=== PATIENT | female | born 1955 | race Caucasian/White ===

== ENCOUNTER 2017-02-21 09:24 | Emergency (ER) | payer BC ==
[2017-02-21] MEDS ORDERED: Fluorescein Opthalmic Strip ONE (10:54)
[2017-02-21] MEDS ORDERED: Proparacaine 0.5% Opth 15 ML BOT ONE (10:54)
== END 2017-02-21 11:24 | disposition home or self-care (01) ==
LOC: ERS 09:24
DX: S05.02XA Injury of conjunctiva and corneal abrasion without foreign body, left eye, initial encounter (principal); E03.9 Hypothyroidism, unspecified; E78.5 Hyperlipidemia, unspecified; F41.9 Anxiety disorder, unspecified; F32.9 Major depressive disorder, single episode, unspecified; W22.8XXA Striking against or struck by other objects, initial encounter
CPT/HCPCS: 99283

== ENCOUNTER 2019-04-30 11:15 | Inpatient (IN) | payer BC ==
[~2019-04-30 11:15] MED LIST: Iopamidol 370 76% 100 ML VIAL ONE
[2019-04-30 12:16] LABS: #Basophils 0.1 thou/uL (0.0-0.2); #Eosinphils 0.2 thou/uL (0.0-0.7); #Lymphocytes 2.4 thou/uL (1.20-3.40); #Monocytes 0.7 thou/uL (0.11-0.59); #Neutrophils 4.7 thou/uL (1.40-6.50); %Basophils 0.7 % (0.0-1.0); %Eosinophils 2.8 % (0.0-10.0); %Lymphocytes 29.6 % (21.0-51.0); %Monocytes 8.1 % (0.0-10.0); %Neutrophils 58.9 % (42.0-75.0); Hemoglobin 15.1 g/dL (12.0-16.0); Mean Corpuscular HGB CONC 34.1 g/dL (32.0-36.0); Mean Platelet Volume 7.1 fL (7.4-10.4); Platelet Count 269 thou/uL (130-400); RBC Distribution Width 11.6 % (11.5-14.5); Red Blood Cell (RBC) Count 5.04 mill/uL (4.20-5.40)
[2019-04-30 12:21] LABS: PTT 38.4 SEC (22.9-36.1); Prothrombin Time 12.8 SEC (12.0-14.7)
[2019-04-30 12:35] LABS: ALT (SGPT) 20 U/L (8-55); AST (SGOT) 18 U/L (5-34); Albumin 4.9 g/dL (3.4-4.8); Alkaline Phosphatase 70 U/L (40-110); Anion Gap 14 mmol/L (10-20); BUN (Urea Nitrogen) 16 mg/dL (9.8-20.1); Bilirubin, Total 0.6 mg/dL (0.2-1.2); Calc. Creatinine Clearance 0 mL/min (70-130); Calcium 10.4 mg/dL (7.8-10.44); Carbon Dioxide 28 mmol/L (23-31); Chloride 102 mmol/L (98-107); Cholesterol 260 mg/dl (< 200 Desired); Estimated GFR-MDRD 46; Globulin 3.3 g/dL (2.4-3.5); Glucose 107 mg/dL (80-115); HDL Cholesterol 37 mg/dL (>60 Neg Risk); Potassium 4.6 mmol/L (3.5-5.1); Protein, Total 8.2 g/dL (6.0-8.3); Sodium 139 mmol/L (136-145); Triglycerides 549 mg/dL (Less than 150)
[2019-04-30] MEDS ORDERED: Heparin (Artline) 1,000 ML ONE (12:40)
[2019-04-30] MEDS ORDERED: Verapamil 5 MG/2 ML VIAL ONE (12:56)
[2019-04-30] MEDS ORDERED: Heparin 10,000 UNITS/1 ML VIAL ONE (12:56)
[2019-04-30] MEDS ORDERED: Nitroglycerin 100MG/250ML BOT 250 ML ONE (12:57)
[2019-04-30] MEDS ORDERED: Fentanyl 100 MCG/2 ML VIAL ONE (13:10)
[2019-04-30] MEDS ORDERED: Midazolam HCl 2 mg/2 ml Vial ONE (13:10)
[2019-04-30] MEDS ORDERED: Clopidogrel Bisulfate 300 MG TAB ONE (13:36)
[2019-04-30] MEDS ORDERED: Aspirin Chewable 81 MG TAB ONE (13:36)
[2019-04-30] MEDS ORDERED: Acetaminophen/Codeine 30-300mg Tablet PO PRN ×2 (13:41)
[2019-04-30] MEDS ORDERED: Nitroglycerin 0.4 MG TAB (25 Tab Bottle) SL PRN (13:41)
[2019-04-30] MEDS ORDERED: Sodium Chloride 0.9% 200 ML IV PRN (13:41)
[2019-04-30] MEDS ORDERED: Sodium Chloride 0.9% 1,000 ML IV SCH (13:45)
[2019-04-30] MEDS ORDERED: Communication Order-Pharmacy FS SCH (14:16)
--- NOTE | 2019-04-30 14:37 | RAD ---
Chest AP view INDICATION: Chest pain COMPARISON: None FINDINGS: Lungs:The lungs are clear Cardiac silhouette:The cardiomediastinal silhouette appears within normal limits. Pulmonary vasculature:Normal Pleural spaces:No pleural effusion or pneumothorax is demonstrated. Upper abdomen:No abnormality seen. Osseous structures: No acute osseous abnormality. Additional findings:None. IMPRESSION: No acute cardiopulmonary abnormality.
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
[2019-04-30 23:00] VITALS: BMI 35.5
[2019-05-01] MEDS ORDERED: CEFAZOLIN 2 GM in Premix Bag 1 BAG IVPB SCH (03:45)
[2019-05-01] MEDS ORDERED: Norepinephrine 4 MG/4 ML VIAL ONE ×2 (06:27→09:52)
[2019-05-01] MEDS ORDERED: Nitroglycerin 50 MG/250 ML BOT 0 ML ONE (06:27)
[2019-05-01] MEDS ORDERED: Fentanyl 250 MCG/5 ML VIAL ONE ×2 (06:28→10:12)
[2019-05-01] MEDS ORDERED: Albumin 5% 500 ML ONE (07:56)
[2019-05-01] MEDS ORDERED: Sodium Bicarb 50 MEQ/50 ML Abboject 8.4% SYRINGE ONE (09:52)
[2019-05-01] MEDS ORDERED: Aminocaproic Acid 5 GM/20 ML VIAL ONE (09:52)
[2019-05-01] MEDS ORDERED: Lidocaine 1% PF 5 ML VIAL ONE (09:52)
[2019-05-01] MEDS ORDERED: Thrombin 5000 UNITS/5 ML VIAL ONE (09:52)
[2019-05-01] MEDS ORDERED: Protamine Sulfate 250 MG/25 ML VIAL ONE (09:52)
[2019-05-01] MEDS ORDERED: Glycopyrrolate 0.2 MG/ML 5 ML SYRINGE ONE (09:52)
[2019-05-01] MEDS ORDERED: Vecuronium 10 MG VIAL ONE ×2 (09:52→10:13)
[2019-05-01] MEDS ORDERED: Potassium Chloride 60 MEQ/30 ML VIAL ONE (09:52)
[2019-05-01] MEDS ORDERED: Magnesium Sulfate 1 GM/2 ML VIAL ONE (09:52)
[2019-05-01] MEDS ORDERED: Calcium Chloride 1 GM/10 ML Abboject SYRINGE ONE (09:52)
[2019-05-01] MEDS ORDERED: Heparin 5,000 UNITS/ML VIAL ONE (09:52)
[2019-05-01] MEDS ORDERED: Ondansetron PF 4 MG/2 ML Vial ONE (09:52)
[2019-05-01] MEDS ORDERED: Heparin 30,000 units/30 ml VIAL ONE (09:52)
[2019-05-01] MEDS ORDERED: Nitroglycerin 50 MG/250 ML BOT ONE (09:52)
[2019-05-01] MEDS ORDERED: PROPOFOL 200 MG/20 ML VIAL ONE (09:52)
[2019-05-01] MEDS ORDERED: Papaverine 60 MG/2 ML VIAL ONE (09:52)
[2019-05-01] MEDS ORDERED: Cardioplegic Soln 1,000 ML BAG ONE (09:52)
[2019-05-01] MEDS ORDERED: Midazolam HCl 5 mg/5 ml Vial ONE (10:13)
[2019-05-01] MEDS ORDERED: Dexmedetomidine 200 MCG/2 ML VIAL ONE (10:13)
[2019-05-01] MEDS ORDERED: Ondansetron ODT 4 MG TAB ONE (10:39)
[2019-05-01] MEDS ORDERED: Midazolam HCl 2 mg/2 ml Vial ONE (10:39)
[2019-05-01] MEDS ORDERED: Heparin 10,000 UNITS/1 ML VIAL 30,000 UNITS in Sodium Chloride 0.9% 1,000 ML FS SCH (11:00)
[2019-05-01] MEDS ORDERED: Insulin Regular 300 UNITS/3 ML VIAL ONE (13:22)
[2019-05-01] MEDS ORDERED: Mag-Al 1200 mg/1200 mg/30 ML UDCUP PO PRN (14:54)
[2019-05-01] MEDS ORDERED: DOPamine 400 MG/D5W 250 ML 250 ML IVPB PRN (14:54)
[2019-05-01] MEDS ORDERED: Bisacodyl 5 MG TAB PO PRN (14:54)
[2019-05-01] MEDS ORDERED: Morphine 2 MG/ML SYRINGE SLOW IVP PRN (14:54)
[2019-05-01] MEDS ORDERED: Norepinephrine 8 MG/0.9% NS 250 ML IVPB PRN (14:54)
[2019-05-01] MEDS ORDERED: Guaifenesin DM 100-10/5 ML UDCUP PO PRN (14:54)
[2019-05-01] MEDS ORDERED: Nitroglycerin 50 MG/250 ML BOT 250 ML IVPB PRN (14:54)
[2019-05-01] MEDS ORDERED: Hetastarch 6% 500 ML 500 ML IVPB PRN (14:54)
[2019-05-01] MEDS ORDERED: Promethazine HCl 25 MG/ML VIAL IM PRN (14:54)
[2019-05-01] MEDS ORDERED: Post-Op Insulin Drip Protocol IVPB ONE (14:54)
[2019-05-01] MEDS ORDERED: niCARdipine 25 MG in Sodium Chloride 0.9% 250 ML 240 ML IVPB PRN (14:54)
[2019-05-01] MEDS ORDERED: hydrALAZINE 20 MG/ML VIAL SLOW IVP PRN (14:54)
[2019-05-01] MEDS ORDERED: Bisacodyl 10 MG SUPP PR PRN (14:54)
[2019-05-01] MEDS ORDERED: Ondansetron PF 4 MG/2 ML Vial IVP PRN (14:54)
[2019-05-01] MEDS ORDERED: Insulin Regular 300 UNITS/3 ML VIAL SC PRN (15:14)
[2019-05-01] MEDS ORDERED: HUMULIN R 100 UNITS in Sodium Chloride 0.9% 100 ML IVPB SCH (15:14)
[2019-05-01] MEDS ORDERED: Dextrose 5% in Water 1,000 ML IV PRN (15:14)
[2019-05-01] MEDS ORDERED: Dextrose 50% Abboject 50 ML SYRINGE SLOW IVP PRN (15:14)
[2019-05-01] MEDS ORDERED: Magnesium 2 GM/50 ML 2 GM in Premix Bag 1 BAG IVPB SCH (15:15)
[2019-05-01 15:35] LABS: INR-International Normal Ratio 1.3; Prothrombin Time 16.6 SEC (12.0-14.7)
[2019-05-01 15:36] LABS: Hemoglobin 11.9 g/dL (12.0-16.0); Mean Corpuscular Hemoglobin 30.4 pg (27.0-31.0); Mean Corpuscular Volume 89.5 fL (78.0-98.0); Mean Platelet Volume 7.2 fL (7.4-10.4); PTT 34.6 SEC (22.9-36.1); Platelet Count 202 thou/uL (130-400); RBC Distribution Width 11.5 % (11.5-14.5); Red Blood Cell (RBC) Count 3.91 mill/uL (4.20-5.40); White Blood Cell (WBC) Count 22.4 thou/uL (4.8-10.8)
[2019-05-01] MEDS: Lactated Ringer's 1,000 ML IV SCH (15:41)
[2019-05-01 15:50] LABS: Anion Gap 7 mmol/L (10-20); BUN (Urea Nitrogen) 13 mg/dL (9.8-20.1); Calc. Creatinine Clearance 91 mL/min (70-130); Carbon Dioxide 22 mmol/L (23-31); Chloride 113 mmol/L (98-107); Estimated GFR-MDRD 72; Glucose 176 mg/dL (80-115); Potassium 4.1 mmol/L (3.5-5.1); Sodium 138 mmol/L (136-145)
[2019-05-01 15:54] LABS: Band 33 % (5-11); Eosinophils 1 % (0-10); Lymphocytes 6 % (21-51); MDiff Complete? YES; Monocytes 9 % (0-10); Neutrophil 46 % (42-75); Platelet Morphology Comment Appears Adequate; Polychromasia SLIGHT = 2-3 cells (100X) (0-2/hpf); Reactive Lymphocytes 5 % (0-10)
--- NOTE | 2019-05-01 16:02 | RAD ---
SINGLE VIEW OF THE CHEST: 05/01/19 COMPARISON: 04/30/18 HISTORY: Status post open heart surgery. FINDINGS: Single view of the chest shows an enlarged but stable cardiomediastinal silhouette. The patient is st atus post sternotomy. There is a right subclavian central venous catheter with tip in the superior ve na cava. No pneumothorax is seen. There is no evidence of consolidation, mass or pleural effusion. IMPRESSION: Appropriate position of lines and tubes status post sternotomy. POS: OFF
[2019-05-01] MEDS: Fentanyl 100 MCG/2 ML VIAL SLOW IVP PRN ×5 (16:28→23:47)
[2019-05-01] MEDS: Ketorolac Tromethamine 30 MG/ML VIAL IVP SCH ×2 (17:24→23:29)
[2019-05-01] MEDS: CEFAZOLIN 2 GM in Premix Bag 1 BAG IVPB SCH (18:29)
[2019-05-01] MEDS: traMADol HCl 50 MG TAB PO PRN ×2 (19:29→23:48)
[2019-05-01] MEDS: Simvastatin 20 MG TAB PO SCH (20:43)
[2019-05-01] MEDS: Famotidine/PF 20 mg/2ml Vial SLOW IVP SCH (20:43)
[2019-05-01] MEDS: Acetaminophen 325 MG TAB PO PRN (20:43)
[2019-05-01 20:51] LABS: Hemoglobin 11.6 g/dL (12.0-16.0)
[2019-05-01 20:58] LABS: Potassium 3.9 mmol/L (3.5-5.1)
[2019-05-01] MEDS ORDERED: FLU VACC QS2019-20(6MOS UP)/PF 60 MCG/0.5 ML SYRINGE IM ONE (21:00)
[2019-05-01] MEDS: Potassium Chloride 20 MEQ/100 ML PREMIX BAG IVPB PRN (21:02)
[2019-05-02] MEDS: Lactated Ringer's 1,000 ML IV SCH ×2 (02:36→16:38)
[2019-05-02] MEDS: CEFAZOLIN 2 GM in Premix Bag 1 BAG IVPB SCH ×2 (02:37→11:05)
[2019-05-02] MEDS: Acetaminophen 325 MG TAB PO PRN (04:12)
[2019-05-02] MEDS: traMADol HCl 50 MG TAB PO PRN ×3 (04:13→18:25)
[2019-05-02 05:36] LABS: #Lymphocytes 0.7 thou/uL (1.20-3.40); #Monocytes 1.5 thou/uL (0.11-0.59); #Neutrophils 18.4 thou/uL (1.40-6.50); %Eosinophils 0.1 % (0.0-10.0); %Lymphocytes 3.4 % (21.0-51.0); %Monocytes 7.3 % (0.0-10.0); %Neutrophils 89.2 % (42.0-75.0); Hemoglobin 10.3 g/dL (12.0-16.0); Mean Corpuscular HGB CONC 33.9 g/dL (32.0-36.0); Mean Corpuscular Hemoglobin 30.8 pg (27.0-31.0); Mean Corpuscular Volume 90.7 fL (78.0-98.0); Mean Platelet Volume 7.7 fL (7.4-10.4); Platelet Count 207 thou/uL (130-400); RBC Distribution Width 11.7 % (11.5-14.5); Red Blood Cell (RBC) Count 3.34 mill/uL (4.20-5.40); White Blood Cell (WBC) Count 20.7 thou/uL (4.8-10.8)
[2019-05-02 05:53] LABS: Anion Gap 12 mmol/L (10-20); BUN (Urea Nitrogen) 15 mg/dL (9.8-20.1); Calc. Creatinine Clearance 83 mL/min (70-130); Calcium 7.7 mg/dL (7.8-10.44); Carbon Dioxide 20 mmol/L (23-31); Chloride 107 mmol/L (98-107); Estimated GFR-MDRD 64; Glucose 124 mg/dL (80-115); Potassium 4.2 mmol/L (3.5-5.1); Sodium 135 mmol/L (136-145)
[2019-05-02] MEDS: Ketorolac Tromethamine 30 MG/ML VIAL IVP SCH ×2 (06:23→12:12)
[2019-05-02] MEDS: Famotidine/PF 20 mg/2ml Vial SLOW IVP SCH ×2 (08:21→20:00)
[2019-05-02] MEDS: Aspirin 81 mg Enteric Coated Tablet PO SCH (08:22)
--- NOTE | 2019-05-02 08:26 | OP ---
DATE OF PROCEDURE: 05/01/2019 PREOPERATIVE DIAGNOSIS: Unstable angina. PROCEDURE PERFORMED: Coronary artery bypass graft x3; left internal mammary artery to a 1.5 mm left anterior descending artery, saphenous vein graft to a 1.5 mm obtuse marginal-1, a 1.25 mm obtuse marginal-2. BLUE LINE TRIMMER: Tremaine Oliva MD TRANSFUSION: None. DESCRIPTION OF PROCEDURE: After adequate anesthesia had been obtained, the patient was prepped and draped. Dr. Oliva performed an endovascular vein harvest on the left greater saphenous vein while I performed a median sternotomy harvesting the left internal mammary artery. After heparinization, the mammary was divided distally, treated with intraluminal papaverine with excellent flow. It was passed behind the thymus gland and through a hole in the pericardium. Aorta and right atrium were cannulated, and cardiopulmonary bypass was begun. With all these vessels were inspected for grafting. The aorta was crossclamped and a liter of cold blood cardioplegia was given. Three distal anastomosis were completed following which the cross-clamp was removed and the partial occluding clamp placed and 2 proximal anastomosis performed on the aortic root and marked with rings. Following this, the patient was weaned from cardiopulmonary bypass, decannulated and Prolene suture were used to repair the aortic cannulation site. Mediastinal drains x2 were placed following which the sternum was reapproximated with #7 interrupted wire using vancomycin paste on the sternal edges, platelet rich blood and platelet poor plasma. Subcutaneous tissue and skin were closed in layers. Job ID: [id number]
--- NOTE | 2019-05-02 08:54 | PRG ---
DATE OF SERVICE: 05/02/2019 SUBJECTIVE: The patient is currently doing well. She is status post bypass surgery x3. No current complaints. A chest tube is still in place. OBJECTIVE: VITAL SIGNS: Blood pressure 126/70, pulse 100, respirations 20. LUNGS: Clear to auscultation. HEART: Regular rate and rhythm. ABDOMEN: Soft, nontender, nondistended. EXTREMITIES: No edema. PERTINENT LABORATORY DATA: Hemoglobin 10.3. Creatinine 0.89. IMPRESSION: 1. Coronary artery disease. 2. Status post bypass surgery. RECOMMENDATIONS: 1. Continue aspirin. 2. Continue Zocor 20 mg q.p.m. 3. Add low-dose metoprolol. 4. Incentive spirometry. Job ID: [id number]
--- NOTE | 2019-05-02 09:44 | RAD ---
CHEST 1 VIEW: Date; 05/02/19 HISTORY: Postop open heart. COMPARISON: 05/01/19. FINDINGS: Recent postop midline sternotomy. Chest tubes in place. Right central line in place. Minimal increase d markings in the infrahilar regions bilaterally with less inspiration than on the prior study. No ne w confluent pneumonia, overt edema, or pneumothorax. IMPRESSION: Poor inspiration with some increased markings in the infrahilar regions, more prominent than prior st udy. No pneumothorax or other acute process. Continue short-term follow-up. POS: [facility]
[2019-05-02] MEDS: Fentanyl 100 MCG/2 ML VIAL SLOW IVP PRN ×3 (11:08→20:00)
[2019-05-02 11:14] LABS: Platelet Count 217 thou/uL (130-400)
[2019-05-02 15:00] LABS: Hemoglobin 9.1 g/dL (12.0-16.0); Platelet Count 232 thou/uL (130-400)
--- NOTE | 2019-05-02 16:06 | RAD ---
XR Chest 1 View Portable History: Chest pain Comparison: Radiograph same day Findings: Right subclavian catheter tip projects over the right atrium. Mediastinal drains are simila r. No pneumothorax. Multiple midline sternotomy wires. Impression: Improved lung aeration.
[2019-05-02] MEDS: Simvastatin 20 MG TAB PO SCH (20:00)
[2019-05-02 20:13] LABS: Hemoglobin 10.4 g/dL (12.0-16.0); Platelet Count 186 thou/uL (130-400)
[2019-05-03] MEDS: traMADol HCl 50 MG TAB PO PRN ×2 (02:04→17:12)
[2019-05-03 03:42] LABS: Anion Gap 12 mmol/L (10-20); BUN (Urea Nitrogen) 19 mg/dL (9.8-20.1); Calc. Creatinine Clearance 78 mL/min (70-130); Carbon Dioxide 24 mmol/L (23-31); Chloride 104 mmol/L (98-107); Estimated GFR-MDRD 60; Glucose 178 mg/dL (80-115); Potassium 4.5 mmol/L (3.5-5.1); Sodium 135 mmol/L (136-145)
[2019-05-03 04:03] LABS: Band 4 % (5-11); Lymphocytes 6 % (21-51); MDiff Complete? YES; Mean Corpuscular HGB CONC 35.8 g/dL (32.0-36.0); Mean Corpuscular Hemoglobin 32.6 pg (27.0-31.0); Mean Platelet Volume 7.1 fL (7.4-10.4); Monocytes 7 % (0-10); Neutrophil 83 % (42-75); Platelet Count 175 thou/uL (130-400); RBC Distribution Width 11.9 % (11.5-14.5); Red Blood Cell (RBC) Count 3.05 mill/uL (4.20-5.40); White Blood Cell (WBC) Count 21.3 thou/uL (4.8-10.8)
[2019-05-03] MEDS: Acetaminophen 325 MG TAB PO PRN (04:13)
[2019-05-03] MEDS: Lactated Ringer's 1,000 ML IV SCH ×2 (06:12→20:30)
[2019-05-03] MEDS ORDERED: LIOTHYRONINE PO SCH (07:30)
[2019-05-03] MEDS ORDERED: LEVOTHYROXINE PO SCH (07:30)
[2019-05-03] MEDS: Famotidine/PF 20 mg/2ml Vial SLOW IVP SCH ×2 (07:51→20:31)
--- NOTE | 2019-05-03 08:09 | RAD ---
CHEST 1 VIEW: Date: 05/03/19 COMPARISON: 05/02/19. HISTORY: Status post open heart surgery. FINDINGS: Stable sternotomy wires, vascular ring, and right-sided vascular catheter. Mildly enlarged cardiac si lhouette. Pulmonary vessels and hilum are normal. Costophrenic angles are clear. Small right infrahil ar infiltrate due to atelectasis, aspiration, or pneumonia. No pneumothorax. IMPRESSION: 1. Small right infrahilar infiltrate. 2. Findings compatible with recent open heart surgery. POS: OFF
[2019-05-03] MEDS: Aspirin 81 mg Enteric Coated Tablet PO SCH (08:45)
[2019-05-03 12:37] LABS: Hemoglobin 9.3 g/dL (12.0-16.0); Platelet Count 211 thou/uL (130-400)
[2019-05-03] MEDS ORDERED: diphenhydrAMINE 50 MG CAP PO PRN (18:04)
[2019-05-03] MEDS: Atorvastatin Calcium 40 MG TAB PO SCH (20:31)
[2019-05-04 03:23] LABS: #Basophils 0.1 thou/uL (0.0-0.2); #Eosinphils 0.3 thou/uL (0.0-0.7); #Lymphocytes 2.7 thou/uL (1.20-3.40); #Monocytes 1.2 thou/uL (0.11-0.59); #Neutrophils 10.8 thou/uL (1.40-6.50); %Basophils 0.4 % (0.0-1.0); %Eosinophils 2.1 % (0.0-10.0); %Lymphocytes 17.9 % (21.0-51.0); %Monocytes 8.2 % (0.0-10.0); %Neutrophils 71.5 % (42.0-75.0); Hemoglobin 9.3 g/dL (12.0-16.0); Mean Corpuscular HGB CONC 34.8 g/dL (32.0-36.0); Mean Corpuscular Hemoglobin 31.5 pg (27.0-31.0); Mean Corpuscular Volume 90.7 fL (78.0-98.0); Mean Platelet Volume 7.1 fL (7.4-10.4); Platelet Count 153 thou/uL (130-400); RBC Distribution Width 11.7 % (11.5-14.5); Red Blood Cell (RBC) Count 2.96 mill/uL (4.20-5.40); White Blood Cell (WBC) Count 15.1 thou/uL (4.8-10.8)
[2019-05-04 03:47] LABS: Anion Gap 8 mmol/L (10-20); BUN (Urea Nitrogen) 13 mg/dL (9.8-20.1); Calc. Creatinine Clearance 98 mL/min (70-130); Carbon Dioxide 27 mmol/L (23-31); Chloride 105 mmol/L (98-107); Estimated GFR-MDRD 78; Glucose 137 mg/dL (80-115); Sodium 136 mmol/L (136-145)
[2019-05-04] MEDS: Potassium Chloride 20 MEQ/100 ML PREMIX BAG IVPB PRN (04:27)
[2019-05-04] MEDS: traMADol HCl 50 MG TAB PO PRN ×4 (04:36→21:39)
[2019-05-04] MEDS ORDERED: Acetaminophen 325 MG TAB PO PRN (06:57)
[2019-05-04] MEDS ORDERED: Bisacodyl 10 MG SUPP PR PRN (06:57)
[2019-05-04] MEDS ORDERED: Fentanyl 100 MCG/2 ML VIAL SLOW IVP PRN (06:57)
[2019-05-04] MEDS ORDERED: Nitroglycerin 0.4 MG TAB (25 Tab Bottle) SL PRN (06:57)
[2019-05-04] MEDS ORDERED: Guaifenesin DM 100-10/5 ML UDCUP PO PRN (06:57)
[2019-05-04] MEDS ORDERED: Mag-Al 1200 mg/1200 mg/30 ML UDCUP PO PRN (06:57)
[2019-05-04] MEDS ORDERED: Mineral Oil ENEMA PR PRN (06:57)
[2019-05-04] MEDS ORDERED: Ondansetron PF 4 MG/2 ML Vial IVP PRN (06:57)
[2019-05-04] MEDS ORDERED: Bisacodyl 5 MG TAB PO PRN (06:57)
[2019-05-04] MEDS ORDERED: Dextrose 50% Abboject 50 ML SYRINGE SLOW IVP PRN (07:12)
[2019-05-04] MEDS ORDERED: Dextrose 5% in Water 1,000 ML IV PRN (07:12)
--- NOTE | 2019-05-04 08:11 | RAD ---
PORTABLE CHEST 1 VIEW: DATE: 05/04/2019. TIME: 4:14 a.m. HISTORY: Postop open heart surgery. FINDINGS: Comparison is made with the exam of the previous day. Changes of median sternotomy are again seen. A right subclavian central line is again seen. The hea rt size is mildly enlarged. No lobar consolidation, pneumothoraces, or pleural effusions are seen. The right infrahilar infiltrate has improved. POS: [facility]
[2019-05-04] MEDS: Aspirin 81 mg Enteric Coated Tablet PO SCH (08:49)
[2019-05-04] MEDS: Furosemide 40 MG TAB PO SCH (08:49)
[2019-05-04] MEDS: Famotidine 20 MG TAB PO SCH ×2 (08:49→21:40)
[2019-05-04] MEDS: Potassium Chloride 10 MEQ TAB PO SCH (08:49)
[2019-05-04] MEDS: Levothyroxine Sodium 25 MCG TAB PO SCH (08:50)
[2019-05-04] MEDS ORDERED: Thyroid 60 MG TAB PO SCH ×2 (09:00→10:00)
[2019-05-04] MEDS: diphenhydrAMINE 25 MG CAP PO PRN ×2 (09:33→16:05)
[2019-05-04] MEDS ORDERED: Diphenoxylate HCl/Atropine Tablet PO PRN (09:52)
[2019-05-04] MEDS: Diphenoxylate HCl/Atropine Tablet PO SCH ×2 (10:00→21:40)
[2019-05-04] MEDS ORDERED: Levothyroxine Sodium 25 MCG TAB PO SCH (10:00)
[2019-05-04] MEDS: Insulin Regular 300 UNITS/3 ML VIAL SC PRN (11:26)
[2019-05-04] MEDS: Atorvastatin Calcium 40 MG TAB PO SCH (21:40)
[2019-05-05 04:54] LABS: #Eosinphils 0.6 thou/uL (0.0-0.7); #Lymphocytes 2.9 thou/uL (1.20-3.40); #Monocytes 0.9 thou/uL (0.11-0.59); #Neutrophils 7.1 thou/uL (1.40-6.50); %Basophils 0.3 % (0.0-1.0); %Eosinophils 5.5 % (0.0-10.0); %Lymphocytes 25.2 % (21.0-51.0); Mean Corpuscular HGB CONC 35.6 g/dL (32.0-36.0); Mean Corpuscular Hemoglobin 32.5 pg (27.0-31.0); Mean Corpuscular Volume 91.4 fL (78.0-98.0); Mean Platelet Volume 7.5 fL (7.4-10.4); Platelet Count 184 thou/uL (130-400); RBC Distribution Width 11.9 % (11.5-14.5); Red Blood Cell (RBC) Count 2.75 mill/uL (4.20-5.40); White Blood Cell (WBC) Count 11.6 thou/uL (4.8-10.8)
[2019-05-05] MEDS: Thyroid 60 MG TAB PO SCH (06:37)
[2019-05-05] MEDS: Levothyroxine Sodium 25 MCG TAB PO SCH (06:37)
[2019-05-05] MEDS: Potassium Chloride 10 MEQ TAB PO SCH (09:18)
[2019-05-05] MEDS: Aspirin 81 mg Enteric Coated Tablet PO SCH (09:19)
[2019-05-05] MEDS: Diphenoxylate HCl/Atropine Tablet PO SCH ×2 (09:20→21:44)
[2019-05-05] MEDS: Furosemide 40 MG TAB PO SCH (09:21)
[2019-05-05] MEDS: Famotidine 20 MG TAB PO SCH ×2 (09:21→21:44)
[2019-05-05] MEDS: traMADol HCl 50 MG TAB PO PRN (18:20)
[2019-05-05] MEDS: Insulin Regular 300 UNITS/3 ML VIAL SC PRN (18:22)
[2019-05-05] MEDS: Atorvastatin Calcium 40 MG TAB PO SCH (21:43)
[2019-05-06] MEDS: Thyroid 60 MG TAB PO SCH (05:43)
[2019-05-06] MEDS: Levothyroxine Sodium 25 MCG TAB PO SCH (05:43)
[2019-05-06] MEDS: Potassium Chloride 10 MEQ TAB PO SCH (08:56)
[2019-05-06] MEDS: Aspirin 81 mg Enteric Coated Tablet PO SCH (08:56)
[2019-05-06] MEDS: Furosemide 40 MG TAB PO SCH (08:57)
[2019-05-06] MEDS: Famotidine 20 MG TAB PO SCH (08:57)
[2019-05-06] MEDS: Diphenoxylate HCl/Atropine Tablet PO SCH (08:57)
[2019-05-06 11:34] VITALS: BP 133/63; TEMP 97.8
--- NOTE | 2019-05-07 12:14 | DIS ---
DATE OF ADMISSION: 04/30/2019 DATE OF DISCHARGE: 05/06/2019 HOSPITAL COURSE: This is a 63-year-old female, who has been having frequent anginal episodes. She was found to have a significant obtuse marginal lesion and it was not felt that this could be treated with a stent due to associated disease. She underwent bypass grafting to the LAD, OM1, and OM2 and received no intraoperative transfusions. However, the night of surgery, she had some bloody output from her chest tube. Her hemoglobin remained relatively stable. However, over the next 24 hours, she did require 2 units of blood. Ultimately, her bleeding stopped and her mediastinum did not show any widening. She will be discharged home on metoprolol-XL 25 a day, atorvastatin 20 a day, aspirin 81 a day, and tramadol for pain. She will resume her home medications. Hemoglobin is about 9 g. Heart rate about 90 to 100 and blood pressure about 100. Discharge and followup instructions were given and her wounds were all healing nicely. Job ID: [id number]
== END 2019-05-06 12:33 | disposition home or self-care (01) | DRG 234 ==
LOC: CCL 11:15 → 2NO 20:51 → CCU 05-01 10:35 → 2NO 05-04 15:58
PROVIDERS: ADMIT Internal Medicine Cardiovascular Disease; ATTEND Internal Medicine Cardiovascular Disease
PROC: 4A023N7 Measurement of Cardiac Sampling and Pressure, Left Heart, Percutaneous Approach (ICD-10-PCS; 2019-04-30)
PROC: B2111ZZ Fluoroscopy of Multiple Coronary Arteries using Low Osmolar Contrast (ICD-10-PCS; 2019-04-30)
PROC: 021109W Bypass Coronary Artery, Two Arteries from Aorta with Autologous Venous Tissue, Open Approach (ICD-10-PCS; principal; 2019-05-01)
PROC: 02100Z9 Bypass Coronary Artery, One Artery from Left Internal Mammary, Open Approach (ICD-10-PCS; 2019-05-01)
PROC: 06BQ4ZZ Excision of Left Saphenous Vein, Percutaneous Endoscopic Approach (ICD-10-PCS; 2019-05-01)
PROC: 5A1221Z Performance of Cardiac Output, Continuous (ICD-10-PCS; 2019-05-01)
PROC: 30233N1 Transfusion of Nonautologous Red Blood Cells into Peripheral Vein, Percutaneous Approach (ICD-10-PCS; 2019-05-01)
PROC: 3E033XZ Introduction of Vasopressor into Peripheral Vein, Percutaneous Approach (ICD-10-PCS; 2019-05-01)
DX: I25.10 Atherosclerotic heart disease of native coronary artery without angina pectoris (principal); I97.611 Postprocedural hemorrhage of a circulatory system organ or structure following cardiac bypass; F31.9 Bipolar disorder, unspecified; E03.9 Hypothyroidism, unspecified; E78.5 Hyperlipidemia, unspecified; I10 Essential (primary) hypertension; F17.211 Nicotine dependence, cigarettes, in remission; Y83.2 Surgical operation with anastomosis, bypass or graft as the cause of abnormal reaction of the patient, or of later complication, without mention of misadventure at the time of the procedure; Z90.49 Acquired absence of other specified parts of digestive tract; Z90.710 Acquired absence of both cervix and uterus; Z79.899 Other long term (current) drug therapy; Z79.890 Hormone replacement therapy; Z88.6 Allergy status to analgesic agent; Z88.5 Allergy status to narcotic agent; Z88.8 Allergy status to other drugs, medicaments and biological substances
CPT/HCPCS: 36415; 36416; 36430; 71045; 76942; 80048; 80053; 80061; 85025; 85610; 85730; 86850; 86900; 86901; 93005; 93010; 93458; 93798; 99152; 99153; C1769; C1887; J0690; J1642; J1644; J1815; J1885; J2001; J2250; J2270; J2405; J2440; J2704; J2720; J3010; J3370; J3475; J3480; J3490; P9016; P9045; Q0162; Q0163; Q9967; S0017; S0028

== ENCOUNTER 2019-06-14 12:14 | Emergency (ER) | payer BC ==
[2019-06-14 12:50] LABS: #Basophils 0.1 thou/uL (0.0-0.2); #Eosinphils 0.3 thou/uL (0.0-0.7); #Lymphocytes 1.8 thou/uL (1.20-3.40); #Monocytes 0.6 thou/uL (0.11-0.59); #Neutrophils 4.1 thou/uL (1.40-6.50); %Basophils 0.9 % (0.0-1.0); %Eosinophils 4.9 % (0.0-10.0); %Lymphocytes 26.1 % (21.0-51.0); %Neutrophils 59.1 % (42.0-75.0); Hemoglobin 12.5 g/dL (12.0-16.0); Mean Corpuscular HGB CONC 33.4 g/dL (32.0-36.0); Mean Corpuscular Hemoglobin 28.4 pg (27.0-31.0); Mean Corpuscular Volume 85.1 fL (78.0-98.0); Mean Platelet Volume 7.1 fL (7.4-10.4); Platelet Count 363 thou/uL (130-400); RBC Distribution Width 12.7 % (11.5-14.5); Red Blood Cell (RBC) Count 4.41 mill/uL (4.20-5.40)
[2019-06-14 13:13] LABS: ALT (SGPT) 20 U/L (8-55); AST (SGOT) 18 U/L (5-34); Albumin 4.2 g/dL (3.4-4.8); Alkaline Phosphatase 100 U/L (40-110); Anion Gap 15 mmol/L (10-20); BUN (Urea Nitrogen) 14 mg/dL (9.8-20.1); Bilirubin, Total 0.3 mg/dL (0.2-1.2); CK (CPK) 37 U/L (29-168); Calc. Creatinine Clearance 0 mL/min (70-130); Calcium 9.4 mg/dL (7.8-10.44); Carbon Dioxide 25 mmol/L (23-31); Chloride 105 mmol/L (98-107); Estimated GFR-MDRD 43; Glucose 133 mg/dL (80-115); Lipase 70 U/L (8-78); Potassium 4.1 mmol/L (3.5-5.1); Protein, Total 7.2 g/dL (6.0-8.3); Sodium 141 mmol/L (136-145)
--- NOTE | 2019-06-14 14:37 | RAD ---
CHEST 1 VIEW PORTABLE: HISTORY: Chest pain. COMPARISON: 05/04/2019. FINDINGS: Postop midline sternotomy. Heart size is normal. The lungs are clear. IMPRESSION: No acute intrathoracic disease. POS: OFF
== END 2019-06-14 14:09 | disposition left against medical advice (07) ==
LOC: ERS 12:14
DX: Z53.21 Procedure and treatment not carried out due to patient leaving prior to being seen by health care provider (principal)
CPT/HCPCS: 36415; 71045; 80053; 82550; 83690; 84484; 85025; 93005

== ENCOUNTER 2024-01-04 10:04 | Outpatient (CLI) | payer MEDICARE, OTHER | END 2024-01-04 10:05 | disposition home or self-care (01) | LOC: BICMAMMO 10:04 | PROVIDERS: ATTEND Family Medicine | DX: Z12.31 Encounter for screening mammogram for malignant neoplasm of breast (principal); Z80.3 Family history of malignant neoplasm of breast | CPT/HCPCS: 77063; 77067 ==

== ENCOUNTER 2024-03-20 16:07 | Outpatient (CLI) | payer MEDICARE, OTHER | END 2024-03-20 16:08 | disposition home or self-care (01) | LOC: BICCT 16:07 | PROVIDERS: ATTEND Family Medicine | DX: R41.3 Other amnesia (principal); I67.89 Other cerebrovascular disease; R90.89 Other abnormal findings on diagnostic imaging of central nervous system | CPT/HCPCS: 70450 ==

== ENCOUNTER 2025-02-19 12:03 | Outpatient (CLI) | payer MEDICARE, OTHER ==
[2025-02-19 13:33] LABS: #Basophils 0.06 10x3/uL (0.0-0.2); #Eosinophils 0.16 10x3/uL (0.0-0.7); #Monocytes 0.58 10x3/uL (0.11-0.59); #Neutrophils 4.42 10x3/uL (1.40-6.50); %Basophils 0.9 % (0.0-1.0); %Eosinophils 2.3 % (0.0-10.0); %Lymphocytes 23.9 % (21.0-51.0); %Monocytes 8.4 % (0.0-10.0); %Neutrophils 64.1 % (42.0-75.0); Hematocrit 39.4 % (36.0-47.0); Hemoglobin 12.6 g/dL (12.0-16.0); Mean Corpuscular Hemoglobin 29.0 pg (27.0-31.0); Mean Corpuscular Volume 90.8 fL (78.0-98.0); Platelet Count 288 10x3/uL (130-400); Red Blood Cell (RBC) Count 4.34 mill/uL (4.20-5.40); White Blood Cell (WBC) Count 6.90 10x3/uL (4.8-10.8)
[2025-02-19 13:42] LABS: INR-International Normal Ratio 1.0; Prothrombin Time 13.6 sec (12.0-14.7)
[2025-02-19 14:13] LABS: ALT (SGPT) 16 U/L (Less than 34); AST (SGOT) 21 U/L (11-34); Albumin 4.2 g/dL (3.1-4.5); Alkaline Phosphatase 69 U/L (40-110); Anion Gap 15 mmol/L (10-20); BUN (Urea Nitrogen) 13 mg/dL (9.8-20.1); Bilirubin, Total 0.9 mg/dL (0.3-1.2); Calc. Creatinine Clearance 0 mL/min (70-130); Calcium 9.3 mg/dL (7.8-10.44); Carbon Dioxide 25 mmol/L (23-31); Chloride 106 mmol/L (98-107); Globulin 2.6 g/dL (2.4-3.5); Glucose 110 mg/dL (80-115); Potassium 3.9 mmol/L (3.5-5.1); Sodium 142 mmol/L (136-145)
== END 2025-02-19 12:04 | disposition home or self-care (01) ==
LOC: LABBT 12:03
PROVIDERS: ATTEND Orthopaedic Surgery
DX: Z01.818 Encounter for other preprocedural examination (principal); M17.12 Unilateral primary osteoarthritis, left knee
CPT/HCPCS: 80053; 85025; 85610; 87081; 93005; 93010

== ENCOUNTER 2025-02-19 13:02 | Outpatient (CLI) | payer MEDICARE, OTHER | END 2025-02-19 13:03 | disposition home or self-care (01) | LOC: CT 13:02 | PROVIDERS: ATTEND Orthopaedic Surgery | DX: Z01.818 Encounter for other preprocedural examination (principal); M17.12 Unilateral primary osteoarthritis, left knee | CPT/HCPCS: 80053; 85025; 85610; 87081; 93005; 93010 ==